=== PATIENT | male | born 1975 | race African-American/Black ===

== ENCOUNTER 2017-11-06 02:17 | Emergency (ER) | payer SELFPAY ==
[2017-11-06 02:39] VITALS: BMI 30.1
--- NOTE | 2017-11-06 03:06 | PDOC ---
Attending Attestation - [facility] HPI: 11/06/17 03:49 The patient is a 42 year old male with a medical history of borderline diabetes and hard of hearing who presents to the emergency department with 4 day complaints of pleuritic chest pain. The patient states his pain is localized to his bilateral upper quadrants with radiation to the middle of his chest. He reports a constant mild discomfort which is exacerbated with inspiration. He reports the onset of pain about 20 minutes after eating lunch on Sunday. He denies headache, SOB, dizziness, palpitations. He denies abdominal pain, nausea, vomiting, diarrhea, or constipation. - Physicial Exam PE: 11/06/17 03:53 Constitutional: Awake, alert, oriented. No acute distress. Head: Normocephalic. Atraumatic Eyes: PERRL. EOMI. Conjunctivae are not pale. ENT: Mucous membranes are moist and intact. Posterior pharynx without exudates or erythema. Uvula midline. Neck: Supple. Full ROM. No lymphadenopathy. Cardiovascular: Regular rate. Regular rhythm. S1, S2 regular. Distal pulses are 2+ and symmetric. Pulmonary/Chest: No evidence of respiratory distress. Clear to auscultation bilaterally No wheezing, rales or rhonchi. Abdominal: Soft and non-distended. There is no tenderness. No rebound, guarding or rigidity. No organomegaly. No palpable masses. Good bowel sounds. Back: No CVA tenderness. Musculoskeletal: No edema. No cyanosis. No clubbing. Full range of motion in all extremities. Nocalf tenderness. Radial/pedal pulses are intact and 2+ bilaterally Skin: Skin is warm and dry. No petechiae. No purpura. Neurological: Alert and oriented to person, place, and time. Cranial nerves II -XII are grossly intact. Normal speech. Strength is grossly symmetric. No sensory deficits. Psychiatric: Good eye contact. Normal interaction, affect and behavior. Documentation prepared by Nancy Parikh, acting as paramedical aide for Nkechimer Velazquez DO <Nancy Parikh - Last Filed: 11/06/17 03:49> - Resident Resident Name: Lázaro Vanegas - ED Attending Attestation I have performed the following: I have examined & evaluated the patient, The case was reviewed & discussed with the resident, I agree w/resident's findings & plan, Exceptions are as noted - Medical Decision Making 11/06/17 03:06 I, Dr. Nkechi Velazquez DO, attest that this document has been prepared under my direction and personally reviewed by me in its entirety. I further attest, that it accurately reflects all work, treatment, procedures and medical decision -making performed by me. 11/06/17 04:03 a/p: 42yo male with atypical lower chest pain b/l atypical cp, will r/o acs and pe -labs -cxr -ekg -reassess pleuritic component of the pain 11/06/17 05:42 trop negative dimer negative no rashes stable for d/c to home. <Nkechi Velazquez - Last Filed: 11/06/17 05:42> Heart Score/ECG Review - ECG Intrepretation Comment:: 11/06/17 04:02 sinus at 72, nl axis, incomplete rbbb, no acute st/t wave findings <Nkechi Velazquez - Last Filed: 11/06/17 05:42>
[2017-11-06 04:02] LABS: BASO % 1.1 % (0-2.0); EOS % 1.5 % (0-4.5); HEMATOCRIT 41.8 % (35.4-49); LYMPH % 39.1 % (8-40); MCH 29.3 pg (25.7-33.7); MCHC 33.4 g/dl (32.0-35.9); MEAN CELL VOLUME 87.8 fl (80-96); MEAN PLT VOLUME 7.2 fl (7.5-11.1); MONO % 11.8 % (3.8-10.2); NEUT % 46.5 % (42.8-82.8); PLATELET COUNT 200 K/MM3 (134-434); RBC 4.76 M/mm3 (4.00-5.60); RDW 12.9 % (11.9-15.9); WHITE BLOOD COUNT 4.6 K/mm3 (4.0-10.0)
[2017-11-06 04:27] LABS: ALBUMIN 3.8 g/dl (3.4-5.0); ANION GAP 7 (8-16); BILIRUBIN,TOTAL 0.3 mg/dL (0.2-1.0); BLOOD UREA NITROGEN 18 mg/dL (7-18); CALCIUM 8.2 mg/dL (8.5-10.1); CHLORIDE 108 mmol/L (98-107); CO2 27 mmol/L (21-32); CREATININE 1.3 mg/dL (0.7-1.3); GLUCOSE,RANDOM 105 mg/dL (74-106); POTASSIUM 3.9 mmol/L (3.5-5.1); SGOT/AST 14 U/L (15-37); SGPT/ALT 29 U/L (12-78); SODIUM 142 mmol/L (136-145); TOT PROT 7.6 g/dl (6.4-8.2)
[2017-11-06 04:30] LABS: ALK PHOS 70 U/L (45-117)
--- NOTE | 2017-11-06 04:37 | PDOC ---
History of Present Illness - General Chief Complaint: Chest Pain Stated Complaint: PAIN Time Seen by Provider: 11/06/17 03:01 History Source: Patient Exam Limitations: No Limitations - History of Present Illness Initial Comments: 11/06/17 04:37 The patient is a 42 year old male with a medical history of borderline DM (last time seeing physician was > 2 years ago) and difficulty hearing who presents to the emergency department with 4 day complaints of pleuritic chest pain. The patient states that his pain started 20 minutes after eating a meal on Sunday evening. The pain has been constant, located in his L lower anterior chest, but tonight, moved to his R anterior lower chest. The pain is worse with deep inspiration. It is not relieved with anything. Past History - Past Medical History Allergies/Adverse Reactions: Allergies Allergy/AdvReac Type Severity Reaction Status Date / Time No Known Allergies Allergy Verified 11/06/17 02:35 - Suicide/Smoking/Psychosocial Hx Smoking History: Never smoked Have you smoked in the past 12 months: No Information on smoking cessation initiated: No Hx Alcohol Use: No Drug/Substance Use Hx: No Review of Systems - Review of Systems Able to Perform ROS?: Yes Comments:: 11/06/17 04:41 GENERAL/CONSTITUTIONAL: No fever or chills. No weakness. HEAD, EYES, EARS, NOSE AND THROAT: No change in vision. No ear pain or discharge. No sore throat. GASTROINTESTINAL: No nausea, vomiting, diarrhea, constipation, or abdominal pain. GENITOURINARY: No dysuria, frequency, hematuria, or change in urination. CARDIOVASCULAR: Positive for chest pain. No palpitations or lightheadedness. RESPIRATORY: No cough, wheezing, shortness of breath, or hemoptysis. MUSCULOSKELETAL: No joint or muscle swelling or pain. No neck or back pain. SKIN: No rash or lesions. NEUROLOGIC: No headache, numbness, tingling, weakness, loss of consciousness, or change in strength/sensation. ENDOCRINE: No increased thirst. No abnormal weight change. HEMATOLOGIC/LYMPHATIC: No anemia, easy bleeding, or history of blood clots. ALLERGIC/IMMUNOLOGIC: No hives or skin allergy. Is the patient limited Bangladeshi proficient: No *Physical Exam - Vital Signs Last Vital Signs Temp Pulse Resp BP Pulse Ox 98.5 F 71 14 141/90 95 11/06/17 02:35 11/06/17 02:35 11/06/17 02:35 11/06/17 02:35 11/06/17 02:35 - Physical Exam Comments: 11/06/17 04:44 GENERAL: Well developed, well nourished. Awake and alert. No acute distress. HEENT: Normocephalic, atraumatic. Hearing grossly normal. Moist mucous membranes. PERRLA, EOMI. No conjunctival pallor. NECK: Supple. Full ROM. No JVD. CARDIOVASCULAR: Regular rate and rhythm. No murmurs, rubs, or gallops. No tenderness to palpation over chest wall. PULMONARY: No evidence of respiratory distress. Lungs clear to auscultation bilaterally. No wheezing, rales or rhonchi. ABDOMINAL: Soft. Non-tender. Non-distended. No rebound or guarding. GENITOURINARY: No CVA tenderness bilaterally. MUSCULOSKELETAL: Normal range of motion at all joints. No bony deformities or tenderness. EXTREMITIES: No cyanosis. No clubbing. No edema. No calf tenderness. SKIN: Warm and dry. Normal capillary refill. No rashes. No jaundice. NEUROLOGICAL: Alert, awake, appropriate. Cranial nerves 2-12 intact. Normal speech. Gait is normal without ataxia. PSYCHIATRIC: Cooperative. Good eye contact. Appropriate mood and affect. Heart Score/ECG Review #1 ECG reviewed & interpreted by me at: 04:46 General ECG Interpretation: Sinus Rhythm, Normal Rate, Normal Intervals, No acute ischemic changes Compared to previous ECG there are: Previous ECG unavail (Incomplete RBBB) ED Treatment Course - LABORATORY CBC & Chemistry Diagram: 11/06/17 03:51 11/06/17 03:51 - ADDITIONAL ORDERS Additional order review: Laboratory Results 11/06/17 03:51 Sodium 142 Potassium 3.9 Chloride 108 H Carbon Dioxide 27 Anion Gap 7 L BUN 18 Creatinine 1.3 Creat Clearance w eGFR 59.97 Random Glucose 105 Calcium 8.2 L Total Bilirubin 0.3 AST 14 L ALT 29 Alkaline Phosphatase 70 Creatine Kinase 243 Troponin I < 0.02 Total Protein 7.6 Albumin 3.8 11/06/17 03:51 RBC 4.76 MCV 87.8 MCHC 33.4 RDW 12.9 MPV 7.2 L Neutrophils % 46.5 Lymphocytes % 39.1 Monocytes % 11.8 H Eosinophils % 1.5 Basophils % 1.1 - RADIOLOGY Radiology Studies Ordered: Category Date Time Status CHEST PA & LAT [RAD] Stat Radiology 11/06/17 03:37 Taken Medical Decision Making - Medical Decision Making 11/06/17 04:47 The patient is a 42M with a PMH of borderline DM who presents to the ED with atypical CP. I am concerned for ACS and possibly for an atypical presentation of a PE. Labs sent including cardiac profile and d-dimer. CXR negative on preliminary read. 11/06/17 05:19 Labs WNL. Pending D-dimer. 11/06/17 05:42 D-dimer negative. Will d/c home with PCP f/u. This is likely referred gas pain. Instructed the patient to return if he has any red flag symptoms. *DC/Admit/Observation/Transfer Diagnosis at time of Disposition: Chest pain, atypical - Discharge Dispostion Disposition: HOME Condition at time of disposition: Stable Admit: No - Referrals - Patient Instructions Printed Discharge Instructions: DI for Atypical Chest Pain Additional Instructions: Please return to the ER if symptoms persist, worsen, or new symptoms arise. Please follow up with your primary care physician in 2-3 days. Please return to the ER if you have any signs or symptoms of chest pain, shortness of breath, uncontrollable fever, chills, nausea, vomiting, numbness, tingling, or weakness in any part of your body, changes in vision, or slurred speech. - Post Discharge Activity
[2017-11-06 04:50] LABS: COCAINE, UR NEGATIVE ng/ml (CUTOFF=300); METHADONE, UR NEGATIVE ng/ml (CUTOFF=300); OPIATES, URI NEGATIVE ng/ml (CUTOFF=300); PHENCYCLIDINE,URINE NEGATIVE ng/ml (CUTOFF=25); URINE AMPHETAMINES NEGATIVE ng/ml (CUTOFF=500); URINE BARBITURATES NEGATIVE ng/ml (CUTOFF=200); URINE BENZODIAZEPINES NEGATIVE ng/ml (CUTOFF=200)
[2017-11-06] MEDS ORDERED: SIMETHICONE 80 MG TAB.CHEW (FP) PO ONE (05:48)
[2017-11-06] MEDS ORDERED: MAG HYDROX/AL HYDROX/SIMETH 30 ML UNIT-DOSE CUP PO ONE (05:48)
[2017-11-06] MEDS ORDERED: MAG HYDROX/AL HYDROX/SIMETH 30 ML UNIT-DOSE CUP ONE (05:51)
[2017-11-06] MEDS ORDERED: LACTULOSE 20 GM/30 ML UDC (FOR ORAL USE ONLY) PO ONE (05:54)
[2017-11-06] MEDS ORDERED: LACTULOSE 20 GM/30 ML UDC (FOR ORAL USE ONLY) ONE (05:54)
[2017-11-06 06:01] VITALS: BP 124/89; PULSE 73; TEMP 98
--- NOTE | 2017-11-06 14:45 | EKG ---
Test Reason : Blood Pressure : / mmHG Vent. Rate : 072 BPM Atrial Rate : 072 BPM P-R Int : 170 ms QRS Dur : 106 ms QT Int : 392 ms P-R-T Axes : 038 000 052 degrees QTc Int : 429 ms NORMAL SINUS RHYTHM INCOMPLETE RIGHT BUNDLE BRANCH BLOCK BORDERLINE ECG NO PREVIOUS ECGS AVAILABLE Confirmed by Alvino Pham MD ([id number]) on 11/06/2017 2:45:02 PM Referred By: Confirmed By:Alvino Pham MD
== END 2017-11-06 06:01 | disposition home or self-care (01) ==
LOC: JER 02:17
DX: R07.89 Other chest pain (principal); E11.9 Type 2 diabetes mellitus without complications; H91.8X9 Other specified hearing loss, unspecified ear
CPT/HCPCS: 36415; 71046-TC; 80053; 80307; 82550; 82553; 84484; 85025; 85379; 93005; 93010; 99281-25